=== PATIENT | male | born 1960 | race Two or more races ===

== ENCOUNTER 2017-11-17 11:16 | Outpatient (CLI) | payer OTHER ==
[~2017-11-17] VITALS: Ht 188 cm; Wt 155.1 kg
== END 2017-11-17 11:30 | disposition home or self-care (01) ==
LOC: OFIC 805 11:16
DX: J32.8 Other chronic sinusitis (principal); G72.89 Other specified myopathies; R09.81 Nasal congestion

== ENCOUNTER 2018-01-15 09:13 | Outpatient (CLI) | payer OTHER ==
[~2018-01-15] VITALS: Ht 182.9 cm; Wt 157.9 kg
== END 2018-01-15 09:30 | disposition home or self-care (01) ==
LOC: OFIC 805 09:13
DX: J32.8 Other chronic sinusitis (principal); R09.81 Nasal congestion; J16.8 Pneumonia due to other specified infectious organisms

== ENCOUNTER 2018-01-29 08:59 | Outpatient (CLI) | payer OTHER ==
[~2018-01-29] VITALS: Ht 182.9 cm; Wt 155.1 kg
== END 2018-01-29 09:15 | disposition home or self-care (01) ==
LOC: OFIC 805 08:59
DX: H81.12 Benign paroxysmal vertigo, left ear (principal)